=== PATIENT | female | born 1970 | race Caucasian/White ===

== ENCOUNTER 2017-07-09 19:32 | Emergency (ER) | payer OTHER ==
[2017-07-09 20:17] VITALS: BP 144/85; PULSE 94; RESP 16; TEMP 98.7; O2SAT 98
[2017-07-09 20:55] LABS: BASO % 0.6 % (0.0-2.0); EOS % 0.3 % (0.0-4.0); HEMOGLOBIN 12.8 g/dL (12.0-16.0); LYMPH # 1.6 K/uL (1.0-4.3); LYMPH % 21.3 % (20.0-40.0); MEAN CELL VOLUME 89.8 fl (81.0-99.0); MEAN CORPUSCULAR HEMOGLOBIN 30.1 pg (27.0-31.0); MEAN CORPUSCULAR HGB CONC 33.5 g/dL (33.0-37.0); MEAN PLATELET VOLUME 7.2 fl (7.2-11.7); MONO # 0.4 K/uL (0.0-0.8); MONO % 5.9 % (0.0-10.0); NEUT # 5.4 K/uL (1.8-7.0); NEUT % 71.9 % (50.0-75.0); RBC 4.27 Mil/uL (3.80-5.20); RED CELL DISTRIBUTION WIDTH 12.9 % (11.5-14.5); WHITE BLOOD COUNT 7.5 K/uL (4.8-10.8)
--- NOTE | 2017-07-09 20:56 | ED PDOC ---
Upper Extremity Pain/Injury Time Seen by Provider: 07/09/17 20:25 Chief Complaint (Nursing): Upper Extremity Problem/Injury Chief Complaint (Provider): Left Arm Pain History Per: Patient, Family (daughter at bedside is translating for patient in Faroese as per patient request) History/Exam Limitations: no limitations Onset/Duration Of Symptoms: Days (x1 week) Current Symptoms Are (Timing): Still Present Additional Complaint(s): Madelin Trimble is a 47 year old right-hand dominant female presents to the ED with left upper arm pain that radiates to her left shoulder that she first experienced one week ago. Patient states that her pain was not persistent, but was rather only present once last week and resurfaced today. She denies any chest pain, current shortness of breath, trauma, injury, performing any heavy lifting. Patient did not take any meds for pain relief. She rates current shoulder pain as 3/10. Patient states pain is better with rest, worse with movement. Past Medical History Reviewed: Historical Data, Nursing Documentation, Vital Signs Vital Signs: Last Vital Signs Temp 98.7 F 07/09/17 20:12 Pulse 94 H 07/09/17 20:12 Resp 16 07/09/17 20:12 BP 144/85 07/09/17 20:12 Pulse Ox 98 07/09/17 20:12 - Medical History PMH: No Chronic Diseases - Surgical History Surgical History: No Surg Hx - Family History Family History: States: No Known Family Hx - Living Arrangements Living Arrangements: With Family - Social History Current smoker - smoking cessation education provided: No Alcohol: None Drugs: Denies - Home Medications Home Medications: Ambulatory Orders Medication Instructions Recorded Ibuprofen [Motrin] 600 mg PO Q6 #20 tab 10/07/16 Lidocaine 5% [Lidoderm] 1 ea TD Q12 #12 patch 10/07/16 - Allergies Allergies/Adverse Reactions: Allergies Allergy/AdvReac Type Severity Reaction Status Date / Time No Known Allergies Allergy Verified 10/06/16 22:43 Review of Systems ROS Statement: Except As Marked, All Systems Reviewed And Found Negative Constitutional: Negative for: Fever Cardiovascular: Negative for: Chest Pain, Palpitations Respiratory: Negative for: Cough, Shortness of Breath, SOB with Exertion Gastrointestinal: Negative for: Nausea, Vomiting Musculoskeletal: Positive for: Shoulder Pain (left shoulder pain), Arm Pain ( left upper arm pain) Physical Exam - Reviewed Nursing Documentation Reviewed: Yes Vital Signs Reviewed: Yes - Physical Exam Appears: Positive for: Non-toxic, No Acute Distress Head Exam: Positive for: ATRAUMATIC, NORMOCEPHALIC Skin: Negative for: Rash Eye Exam: Positive for: Normal appearance Neck: Positive for: Painless ROM. Negative for: Pain On Movement Of Neck Cardiovascular/Chest: Positive for: Regular Rate, Rhythm. Negative for: Murmur Respiratory: Positive for: Normal Breath Sounds. 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 Negative for : Tenderness Neurologic/Psych: Positive for: Alert, Oriented. Negative for: Motor/Sensory Deficits - Laboratory Results Result Diagrams: 07/09/17 20:45 07/09/17 20:45 - ECG O2 Sat by Pulse Oximetry: 98 (RA) Pulse Ox Interpretation: Normal - Other Rad CXR X-Ray: Interpreted by Me, Viewed By Me X-Ray Interpretation: no acute finding L shoulder x-ray X-Ray: Interpreted by Me, Viewed By La X-Ray Interpretation: no acute finding, no fx, no dis Medical Decision Making Medical Decision Making: Impression: Left shoulder and left upper arm pain Previous records reviewed, patient was seen in ED for same complaint in 2016. Plan: * EKG * Chest X-Ray * X-Ray Left Shoulder * BMP * CBC * Troponin I Patient is aware of all diagnostic testing results. She was instructed to take tylenol for pain and to follow up with clinic in 1-2 days. Patient is aware that she can RTED at any time if acutely worse. Scribe Attestation: Documented by Lily Hook, acting as a scribe for Gardenia Mae PA-C. Provider Scribe Attestation: All medical record entries made by the Scribe were at my direction and personally dictated by me. I have reviewed the chart and agree that the record accurately reflects my personal performance of the history, physical exam, medical decision making, and the department course for this patient. I have also personally directed, reviewed, and agree with the discharge instructions and disposition. Disposition - Clinical Impression Clinical Impression: Shoulder pain - Patient ED Disposition Is Patient to be Admitted: No Counseled Patient/Family Regarding: Studies Performed, Diagnosis, Need For Followup - Disposition Referrals: [facility] [Outside] [facility] [Outside] Disposition: Routine/Home Disposition Time: 22:02 Condition: STABLE Additional Instructions: Tylenol as needed for pain. Follow up with clinic in 1-2 days. Instructions: Shoulder Pain (ED) Forms: [employer] (Faroese) Print Language: FAROESE Results - Lab Results Lab Results: 07/09/17 07/09/17 20:45 20:45 WBC 7.5 RBC 4.27 Hgb 12.8 Hct 38.4 MCV 89.8 MCH 30.1 MCHC 33.5 RDW 12.9 Plt Count 388 MPV 7.2 Neut % (Auto) 71.9 Lymph % (Auto) 21.3 [place] % (Auto) 5.9 Eos % (Auto) 0.3 Baso % (Auto) 0.6 Neut # 5.4 Lymph # 1.6 [place] # 0.4 Eos # 0.0 Baso # 0.0 Sodium 139 Potassium 3.8 Chloride 105 Carbon Dioxide 23 Anion Gap 14 BUN 14 Creatinine 0.5 L Est GFR ( Amer) > 60 Est GFR (Non-Af Amer) > 60 Random Glucose 106 H Calcium 9.0 Troponin I < 0.0120
[2017-07-09 21:02] LABS: BLOOD UREA NITROGEN 14 mg/dl (7-17); GFR AFRICAN-AMERICAN > 60; GFR NON-AFRICAN AMERICAN > 60
--- NOTE | 2017-07-10 10:55 | RAD ---
HISTORY: left shoulder pain COMPARISON: No prior. TECHNIQUE: Chest PA and lateral FINDINGS: LUNGS: No active pulmonary disease. PLEURA: No significant pleural effusion identified. No pneumothorax apparent. CARDIOVASCULAR: Normal. OSSEOUS STRUCTURES: No significant abnormalities. VISUALIZED UPPER ABDOMEN: Normal. OTHER FINDINGS: None. IMPRESSION: No acute cardiopulmonary disease is identified.
--- NOTE | 2017-07-10 10:59 | RAD ---
PROCEDURE: Radiographs of the Left Shoulder HISTORY: pain COMPARISON: No prior. FINDINGS: BONES: Normal. No fracture. JOINTS: Normal. Glenohumeral and acromioclavicular joints preserved. No osteoarthritis. SOFT TISSUES: Normal. OTHER FINDINGS: None. IMPRESSION: No significant or acute findings to account for/ related to the clinical presentation. Concordant results with the preliminary interpretation rendered by the emergency department physician procedure.
--- NOTE | 2017-07-11 07:42 | CARD ---
APPROVED REPORT EKG Measurement Heart [id number] <Conclusion> Normal sinus rhythm Normal ECG
== END 2017-07-09 22:47 | disposition home or self-care (01) ==
LOC: H.ER 19:32
DX: M25.512 Pain in left shoulder (principal)